=== PATIENT | female | born 2000 | race Caucasian/White ===

== ENCOUNTER 2023-10-13 23:17 | Emergency (ER) | payer OTHER ==
[~2023-10-13] VITALS: Ht 160 cm; Wt 71.6 kg
[2023-10-13 23:18] VITALS: BP 119/68; TEMP 97.7; O2SAT 100
[2023-10-13] MEDS ORDERED: birth control tabs PO (23:25)
[2023-10-14] MEDS ORDERED: PHEN-372 PO (00:51)
[2023-10-14] MEDS ORDERED: CEFD300C PO (00:51)
[2023-10-14] MEDS: LIDOCAINE 1% SDV 5ML VIAL DILUENT ONE (01:13)
[2023-10-14] MEDS: PHENAZOPYRIDINE 100 MG TAB PO ONE (01:13)
[2023-10-14] MEDS: cefTRIAXone SOD 250MG VIAL IM ONE (01:13)
== END 2023-10-14 01:35 | disposition home or self-care (01) ==
LOC: M ED 23:17
DX: N30.01 Acute cystitis with hematuria (principal); Z87.448 Personal history of other diseases of urinary system; Z87.442 Personal history of urinary calculi
CPT/HCPCS: 81001; 87086; 96372; 99283; J0696